=== PATIENT | female | born 1970 | race Two or more races ===

== ENCOUNTER → 2020-04-02 | Outpatient (CLI) | payer BC, OTHER ==
--- NOTE | 2020-04-02 11:11 | RADIOLOGY REPORT (SQ) ---
EXAM DESCRIPTION: CT HEAD WITH IMAGES COMPLETED DATE/TIME: 04/02/2020 8:23 am REASON FOR STUDY: OTHER SPECIFIED DISORDERS OF BONE, OTHER SITE (M89.8X8), SUBCUTANEOUS MASS M89.8X8 OTHER SPECIFIED DISORDERS OF BONE, OTHER SITE COMPARISON: None. TECHNIQUE: Axial images acquired through the brain with intravenous contrast. Images reviewed with b one, brain and subdural windows. Additional sagittal and coronal reconstructions were generated. [place] ges stored on PACS. All CT scanners at this facility use dose modulation, iterative reconstruction, and/or weight based d osing when appropriate to reduce radiation dose to as low as reasonably achievable (ALARA). [facility]: Dose Right [facility]: CareDose [facility]: Dose Right [facility]: Teradose 4D [facility]: Smart GPS Backpack CONTRAST TYPE AND DOSE: contrast/concentration: Isovue 350.00 mmol/ml; Total Contrast Delivered: 50. 0 ml; Total Saline Delivered: 55.0 ml RENAL FUNCTION: Creatinine 0.9 RADIATION DOSE: CT Rad equipment meets quality standard of care and radiation dose reduction techniq ues were employed. CTDIvol: 48.5 - 48.5 mGy. DLP: 1710 mGy-cm.. LIMITATIONS: None. FINDINGS: VENTRICLES: Normal size and contour. CEREBRUM: No masses. No hemorrhage. No midline shift. Normal oates/white matter differentiation. No ev idence for acute infarction. No enhancing lesions. CEREBELLUM: No masses. No hemorrhage. No alteration of density. No evidence for acute infarction. No enhancing lesions. EXTRA-AXIAL SPACES: No fluid collections. No enhancing lesions. ORBITS AND GLOBE: No intra- or extraconal masses. Normal contour of globe without masses. CALVARIUM: No fracture. A tiny focus of cortical thickening is seen of the left frontal calvarium. PARANASAL SINUSES: No fluid or mucosal thickening. SOFT TISSUES: No mass or hematoma. OTHER: No other significant finding. IMPRESSION: Normal brain CT with contrast. Incidental note is made of focal cortical thickening inv olving the left frontal calvarium; while nonspecific, this finding demonstrates no aggressive imaging features. EVIDENCE OF ACUTE STROKE: NO. TECHNICAL DOCUMENTATION: JOB ID: [id number] Quality ID # [id number]: Final reports with documentation of one or more dose reduction techniques (e.g., Au tomated exposure control, adjustment of the mA and/or kV according to patient size, use of iterative reconstruction technique) 2010 [employer]- All Rights Reserved Reading location - IP/workstation name: [facility]
== END ==
LOC: RAD 07:47
PROVIDERS: ATTEND Surgery
DX: M89.8X8 Other specified disorders of bone, other site (principal); R22.0 Localized swelling, mass and lump, head
CPT/HCPCS: 70460; 82565